=== PATIENT | male | born 1960 | race Caucasian/White ===

== ENCOUNTER → 2016-04-09 | Day surgery (SDC) | payer OTHER ==
[2016-04-02 12:13] VITALS: Ht 188 cm; Wt 120.5 kg
[~2016-04-09] VITALS: Ht 188 cm; Wt 120.5 kg
[~2016-04-09] MED LIST: LYSI100010 PO; VALA500T60 PO
== END | disposition home or self-care (01) ==
LOC: EDSTATUS 07:00 → C.PAT 11:36
PROVIDERS: ATTEND Otolaryngology